=== PATIENT | male | born 1930 | race Caucasian/White ===

== ENCOUNTER 2017-08-18 11:14 | Emergency (ER) | payer MEDICARE, OTHER ==
[~2017-08-18] VITALS: Ht 172.7 cm; Wt 85.0 kg
[~2017-08-18 11:14] MED LIST: ASPIRIN81 MG PO; CIPROFLOXACIN500 M1 PO; CRESTOR20 MG PO; EMBREL PO; HYZAAR1 TAB PO; MAGNESIUM PO; METOPROL TAR25 MG PO; OMEGA-3 FISH1000 MG PO; OMEPRAZOLE20 M2 PO; PLAVIX75 MG PO; SYNTHROID100 MCG PO
[2017-08-18] MEDS ORDERED: ISOSORB MONO30 MG PO (11:45)
[2017-08-18] MEDS ORDERED: STELARA130 MG/26 SC (11:46)
[2017-08-18 13:28] LABS: INFLUENZA A NONE DETECTED (NONE DETECT); INFLUENZA B NONE DETECTED (NONE DETECT)
[2017-08-18] MEDS ORDERED: ZPAK PO (13:54)
[2017-08-18] MEDS ORDERED: ROBITUSSIN AC10 ML PO (13:54)
[2017-08-18 13:55] LABS: HEMATOCRIT 41.5 % (39.0-50.0); HEMOGLOBIN 13.7 g/dl (14.0-18.0); IMMATURE GRANULOCYTES 0.3 % (0.0-1.0); MEAN CELL VOLUME 95.8 fL CALC (80.0-100.0); MEAN CORPUSCULAR HGB 31.6 pG CALC (26.0-32.0); NEUT# 5.33 thou/uL (1.82-7.42); RED BLOOD COUNT 4.33 mill/uL (4.70-6.10); RED CELL DISTRI WIDTH 13.1 % (11.5-15.5)
[2017-08-18 14:03] VITALS: BP 132/68
[2017-08-18 14:06] LABS: BILIRUBIN, TOTAL 1.1 mg/dL (0.0-1.4); CALCIUM 9.5 mg/dL (8.4-10.2); CREATININE 1.7 mg/dL (0.7-1.3); TOTAL PROTEIN 6.6 g/dL (6.3-8.2)
[2017-08-18 14:08] LABS: POTASSIUM 5.2 mmol/l (3.5-5.1)
== END 2017-08-18 14:26 | disposition home or self-care (01) ==
LOC: ED 11:14
PROVIDERS: Emergency Medicine
DX: J06.9 Acute upper respiratory infection, unspecified (principal); I10 Essential (primary) hypertension; M19.90 Unspecified osteoarthritis, unspecified site; Z95.5 Presence of coronary angioplasty implant and graft

== ENCOUNTER 2017-09-03 12:19 | Emergency (ER) | payer MEDICARE, OTHER ==
[~2017-09-03] VITALS: Ht 172.7 cm; Wt 84.0 kg
[~2017-09-03 12:19] MED LIST changes: +ISOSORB MONO30 MG PO; +ROBITUSSIN AC10 ML PO; +STELARA130 MG/26 SC; +ZPAK PO
[2017-09-03 14:35] VITALS: BP 106/66
== END 2017-09-03 14:35 | disposition home or self-care (01) ==
LOC: ED 12:19
DX: M25.431 Effusion, right wrist (principal); M79.89 Other specified soft tissue disorders; I10 Essential (primary) hypertension; M19.90 Unspecified osteoarthritis, unspecified site; Z95.5 Presence of coronary angioplasty implant and graft